=== PATIENT | male | born 1955 | race Caucasian/White ===

== ENCOUNTER → 2021-04-22 | Outpatient (CLI) | payer MEDICARE | LOC: HEART 5 07:53 | DX: I25.119 Atherosclerotic heart disease of native coronary artery with unspecified angina pectoris (principal); I70.219 Atherosclerosis of native arteries of extremities with intermittent claudication, unspecified extremity; R07.9 Chest pain, unspecified | CPT/HCPCS: 78452; 93306; A9502; J2785 ==

== ENCOUNTER → 2021-05-07 | Outpatient (CLI) | payer MEDICARE ==
[2021-05-07 11:31] LABS: HEMOGLOBIN 14.6 gm/dl (14.0-17.5); RED BLOOD COUNT 5.22 M/UL (4.20-5.50); WHITE BLOOD COUNT 9.4 K/UL (4.5-11.0)
[2021-05-07 11:53] LABS: BUN/CREATININE RATIO 21 (0-10)
== END ==
LOC: RT 10:37
PROVIDERS: Internal Medicine Interventional Cardiology
DX: I10 Essential (primary) hypertension (principal); I25.119 Atherosclerotic heart disease of native coronary artery with unspecified angina pectoris; R94.39 Abnormal result of other cardiovascular function study; R07.9 Chest pain, unspecified; J44.9 Chronic obstructive pulmonary disease, unspecified; E11.9 Type 2 diabetes mellitus without complications; R06.89 Other abnormalities of breathing; E78.5 Hyperlipidemia, unspecified; R60.9 Edema, unspecified; I70.219 Atherosclerosis of native arteries of extremities with intermittent claudication, unspecified extremity; I25.5 Ischemic cardiomyopathy; E66.01 Morbid (severe) obesity due to excess calories
CPT/HCPCS: 36415; 80048; 85025; 85610; 85730; 93005

== ENCOUNTER 2021-05-11 08:13 | Outpatient (CLI) | payer MEDICARE ==
[~2021-05-11] VITALS: Ht 170.2 cm; Wt 129.3 kg
[2021-05-11] MEDS ORDERED: FENOFIBRATE134 MG PO (09:19)
[2021-05-11] MEDS ORDERED: GLIPIZIDE ER5 MG PO (09:19)
[2021-05-11] MEDS ORDERED: SIMVASTATIN20 MG PO (09:19)
[2021-05-11] MEDS ORDERED: SPIRIVA18 MCG INH (09:19)
[2021-05-11] MEDS ORDERED: HYDROCHLOROTHIA25 MG PO (09:20)
[2021-05-11] MEDS ORDERED: GLUCOPHAGE 500500 MG PO (09:21)
[2021-05-11] MEDS ORDERED: CILOSTAZOL50 MG PO (09:21)
[2021-05-11] MEDS ORDERED: HYDRALAZINE HC100 MG PO (09:22)
[2021-05-11] MEDS ORDERED: ZYLOPRIM 300 M300 MG PO (09:22)
[2021-05-11] MEDS ORDERED: ISOSORBIDE MONO60 MG PO (09:22)
[2021-05-11] MEDS ORDERED: FENOFIBRIC ACI135 MG PO (09:23)
[2021-05-11] MEDS ORDERED: METOPROLOL TAR100 MG PO (09:23)
[2021-05-11] MEDS ORDERED: TRESIBA FL100 UNIT/1 SQ (09:23)
[2021-05-11] MEDS ORDERED: ASPIR-TRIN325 MG PO (09:24)
[2021-05-11] MEDS ORDERED: AVAPRO300 MG PO (09:25)
[2021-05-11] MEDS ORDERED: PROVENTIL HFA6.7 GM INH (09:25)
[2021-05-11] MEDS ORDERED: CLARITIN10 M2 PO (09:25)
[2021-05-11] MEDS ORDERED: SIMCOR (09:26)
[2021-05-11] MEDS ORDERED: VITAMIN D 40400 UNIT PO (09:27)
[2021-05-11] MEDS ORDERED: NITROGLYCERIN0.4 MG SL (09:28)
[2021-05-11 21:20] LABS: HEMOGLOBIN 14.6 gm/dl (14.0-17.5); RED BLOOD COUNT 5.17 M/UL (4.20-5.50); WHITE BLOOD COUNT 9.5 K/UL (4.5-11.0)
[2021-05-11 21:40] LABS: BUN/CREATININE RATIO 18 (0-10)
[2021-05-12 07:31] LABS: HEMOGLOBIN 14.9 gm/dl (14.0-17.5); RED BLOOD COUNT 5.41 M/UL (4.20-5.50); WHITE BLOOD COUNT 9.5 K/UL (4.5-11.0)
[2021-05-12 09:12] LABS: BUN/CREATININE RATIO 16 (0-10)
--- NOTE | 2021-05-12 09:54 | NUR ---
DR CHANG NOTIFIED OF ELEVATED TROPONIN 0.69, SHE IS OK WITH IT AND PLANS TO SEND THE PT HOME TODAY
== END 2021-05-12 15:29 | disposition home or self-care (01) ==
LOC: CATH 08:13 → PROG CARE 13:53 → CATH 05-12 15:29
PROVIDERS: Internal Medicine Interventional Cardiology
DX: I25.119 Atherosclerotic heart disease of native coronary artery with unspecified angina pectoris (principal); I34.0 Nonrheumatic mitral (valve) insufficiency; I11.9 Hypertensive heart disease without heart failure; J44.9 Chronic obstructive pulmonary disease, unspecified; I42.0 Dilated cardiomyopathy; I25.5 Ischemic cardiomyopathy; E78.5 Hyperlipidemia, unspecified; E11.9 Type 2 diabetes mellitus without complications; I73.9 Peripheral vascular disease, unspecified; E55.9 Vitamin D deficiency, unspecified; M10.9 Gout, unspecified; E66.01 Morbid (severe) obesity due to excess calories; Z86.73 Personal history of transient ischemic attack (TIA), and cerebral infarction without residual deficits; Z79.4 Long term (current) use of insulin; Z79.82 Long term (current) use of aspirin; Z79.899 Other long term (current) drug therapy; Z82.49 Family history of ischemic heart disease and other diseases of the circulatory system; Z68.42 Body mass index [BMI] 45.0-49.9, adult
CPT/HCPCS: ECHO; 36415; 80048; 82550; 82553; 82962; 84484; 85027; 85347; 93306; 97161; 99152; 99153; C1725; C1769; C1874; C1887; C1894; C9600; J0461; J1644; J2250; J3010; J3246; J7030; Q9967

== ENCOUNTER → 2021-06-02 | Outpatient (CLI) | payer MEDICARE ==
[~2021-06-02] MED LIST: ASPIR-TRIN325 MG PO; AVAPRO300 MG PO; CILOSTAZOL50 MG PO; CLARITIN10 M2 PO; FENOFIBRATE134 MG PO; FENOFIBRIC ACI135 MG PO; GLIPIZIDE ER5 MG PO; GLUCOPHAGE 500500 MG PO; HYDRALAZINE HC100 MG PO; HYDROCHLOROTHIA25 MG PO; ISOSORBIDE MONO60 MG PO; METOPROLOL TAR100 MG PO; NITROGLYCERIN0.4 MG SL; PROVENTIL HFA6.7 GM INH; SIMCOR; SIMVASTATIN20 MG PO; SPIRIVA18 MCG INH; TRESIBA FL100 UNIT/1 SQ; VITAMIN D 40400 UNIT PO; ZYLOPRIM 300 M300 MG PO
[2021-06-02 14:18] LABS: HEMOGLOBIN 15.6 gm/dl (14.0-17.5)
[2021-06-02 14:42] LABS: BUN/CREATININE RATIO 18 (0-10)
[2021-06-02 14:46] LABS: RED BLOOD COUNT 5.6 M/UL (4.20-5.50); WHITE BLOOD COUNT 10.8 K/UL (4.5-11.0)
== END ==
LOC: RT 12:19
PROVIDERS: Internal Medicine Interventional Cardiology
DX: I25.119 Atherosclerotic heart disease of native coronary artery with unspecified angina pectoris (principal); Z51.81 Encounter for therapeutic drug level monitoring; R07.9 Chest pain, unspecified; R94.39 Abnormal result of other cardiovascular function study; J44.9 Chronic obstructive pulmonary disease, unspecified; E11.9 Type 2 diabetes mellitus without complications; R06.89 Other abnormalities of breathing; E78.5 Hyperlipidemia, unspecified; R60.9 Edema, unspecified; I10 Essential (primary) hypertension; I70.219 Atherosclerosis of native arteries of extremities with intermittent claudication, unspecified extremity; I25.5 Ischemic cardiomyopathy; E66.01 Morbid (severe) obesity due to excess calories
CPT/HCPCS: 36415; 80048; 85025; 85610; 85730; 93005

== ENCOUNTER 2021-06-08 08:15 | Outpatient (CLI) | payer MEDICARE ==
[~2021-06-08] VITALS: Ht 170.2 cm; Wt 124.0 kg
[~2021-06-08 08:15] MED LIST changes: -METOPROLOL TAR100 MG PO; +METOPROLOL TART50 MG PO
[2021-06-08] MEDS ORDERED: LANTUS100 UNIT/1 SC (14:35)
[2021-06-08 19:19] LABS: HEMOGLOBIN 14.9 gm/dl (14.0-17.5); RED BLOOD COUNT 5.42 M/UL (4.20-5.50); WHITE BLOOD COUNT 7.1 K/UL (4.5-11.0)
[2021-06-08 19:36] LABS: BUN/CREATININE RATIO 21 (0-10)
[2021-06-09 06:08] LABS: RED BLOOD COUNT 5.46 M/UL (4.20-5.50); WHITE BLOOD COUNT 9.2 K/UL (4.5-11.0)
[2021-06-09 07:08] LABS: BUN/CREATININE RATIO 21 (0-10)
[2021-06-09] MEDS ORDERED: ASPIRIN EC81 MG PO (12:27)
[2021-06-09] MEDS ORDERED: BRILINTA90 MG PO (13:01)
== END 2021-06-09 14:07 | disposition home or self-care (01) ==
LOC: PROG CARE 08:15 → CATH 08:15 → PROG CARE 14:04 → CATH 06-09 14:07
PROVIDERS: Internal Medicine Interventional Cardiology
DX: I25.118 Atherosclerotic heart disease of native coronary artery with other forms of angina pectoris (principal); E11.9 Type 2 diabetes mellitus without complications; I10 Essential (primary) hypertension; E78.5 Hyperlipidemia, unspecified; J44.9 Chronic obstructive pulmonary disease, unspecified; I25.5 Ischemic cardiomyopathy; I42.0 Dilated cardiomyopathy; E66.01 Morbid (severe) obesity due to excess calories; Z68.41 Body mass index [BMI] 40.0-44.9, adult; F17.200 Nicotine dependence, unspecified, uncomplicated
CPT/HCPCS: 36415; 80048; 82550; 82553; 82962; 84484; 85027; 85347; 93005; 99152; 99153; C1725; C1769; C1874; C1887; C1894; C9600; J0461; J1644; J2250; J3010; J3246; J7030; Q9967